=== PATIENT | female | born 1940 | race Hispanic/Latino ===

== ENCOUNTER 2019-06-16 18:12 | Inpatient (IN) | payer OTHER, MEDICARE ==
[~2019-06-16] VITALS: Ht 162.6 cm; Wt 67.7 kg
[~2019-06-16 18:12] MED LIST: AMLO-258 PO; HYDR12.54 PO; METF-446 PO
[2019-06-16 18:42] LABS: BASOPHILS % (AUTO) 0.6 % (0.0-5.0); EOSINOPHILS % (AUTO) 3.2 % (0.0-8.0); HEMATOCRIT 34.4 % (36-48); LYMPHOCYTES % (AUTO) 16.3 % (21.0-51.0); MEAN CORPUSCULAR HEMOGLOBIN 30.3 pg (27.0-33.0); MEAN CORPUSCULAR HGB CONC 34.3 g/dL (32.0-36.0); MEAN CORPUSCULAR VOLUME 88.4 fL (79-99); MONOCYTES % (AUTO) 13.8 % (3.0-13.0); NEUTROPHILS % (AUTO) 64.2 % (40.0-77.0); PLATELET COUNT (AUTO) 128 K/uL (130-400); RED BLOOD CELL COUNT(AUTO) 3.89 MIL/uL (4.00-5.50); RED CELL DISTRIBUTION WIDTH 12.8 % (11.0-15.5); WHITE BLOOD COUNT (AUTO) 6.3 K/uL (4.8-10.8)
[2019-06-16 18:51] LABS: POTASSIUM 4.8 mmol/L (3.5-5.1)
[2019-06-16 18:55] LABS: BILIRUBIN,TOTAL 0.7 mg/dL (0.2-1.0)
[2019-06-16] MEDS: SODIUM CHLORIDE 0.9% 1000ML 1,000 ML IV SCH (20:32)
[2019-06-16] MEDS ORDERED: KETOROLAC TROMETHAMINE 15MG/ML IV PRN (20:45)
[2019-06-16] MEDS ORDERED: ONDANSETRON HCL 4 MG/2 ML VIAL IV PRN (20:45)
[2019-06-16] MEDS ORDERED: LACTULOSE 20 GM/30 ML UDCUP PO PRN (20:45)
[2019-06-16] MEDS: LIDOCAINE 5% TOPICAL PATCH TP SCH (20:45)
[2019-06-16] MEDS ORDERED: HYDRALAZINE HCL 20 MG/ML VIAL IV PRN (20:45)
[2019-06-16] MEDS: INSULIN HUMULIN R 100 UNIT/ML 3ML SQ SCH (21:00)
[2019-06-16 21:22] LABS: INR 1.02 (0.85-1.15); PARTIAL THROMBOPLASTIN TIME 27.4 SEC (26.3-35.5)
[2019-06-16 21:26] LABS: CHOLESTEROL 139 mg/dL (<200); HDL CHOLESTEROL 51 mg/dL (35-85); LDL DIRECT 66 mg/dL (0-99); TRIGLYCERIDES 111 mg/dL (30-200)
[2019-06-16 21:26] LABS: HEMOGLOBIN A1C 6.3 % (4.0-6.0)
[2019-06-16] MEDS ORDERED: FAMOTIDINE/PF 20 MG/2 ML VIAL IV ONE (21:53)
[2019-06-16] MEDS ORDERED: LACTULOSE 20 GM/30 ML UDCUP ONE (22:04)
[2019-06-16 22:45] VITALS: BP 141/78
[2019-06-17 03:49] VITALS: BP 130/69
[2019-06-17 04:21] LABS: BASOPHILS % (AUTO) 0.5 % (0.0-5.0); EOSINOPHILS % (AUTO) 2.6 % (0.0-8.0); HEMATOCRIT 30.8 % (36-48); LYMPHOCYTES % (AUTO) 19.9 % (21.0-51.0); MEAN CORPUSCULAR HEMOGLOBIN 29.9 pg (27.0-33.0); MEAN CORPUSCULAR HGB CONC 33.8 g/dL (32.0-36.0); MEAN CORPUSCULAR VOLUME 88.5 fL (79-99); MONOCYTES % (AUTO) 17.5 % (3.0-13.0); NEUTROPHILS % (AUTO) 58.7 % (40.0-77.0); PLATELET COUNT (AUTO) 89 K/uL (130-400); RED BLOOD CELL COUNT(AUTO) 3.48 MIL/uL (4.00-5.50); RED CELL DISTRIBUTION WIDTH 12.9 % (11.0-15.5); WHITE BLOOD COUNT (AUTO) 3.8 K/uL (4.8-10.8)
[2019-06-17 04:37] LABS: POTASSIUM 4.1 mmol/L (3.5-5.1)
[2019-06-17] MEDS: SODIUM CHLORIDE 0.9% 1000ML 1,000 ML IV SCH ×2 (06:19→20:37)
[2019-06-17] MEDS: INSULIN HUMULIN R 100 UNIT/ML 3ML SQ SCH ×4 (06:20→21:00)
[2019-06-17] MEDS ORDERED: PROP10TA10 PO (06:49)
[2019-06-17] MEDS ORDERED: GLIM1TAB18 PO (06:49)
[2019-06-17] MEDS ORDERED: LINA5TAB PO (06:49)
[2019-06-17] MEDS ORDERED: CYCL5TAB PO (06:49)
[2019-06-17] MEDS ORDERED: SPIR25TA6 PO (06:49)
[2019-06-17] MEDS ORDERED: AMLO2.5T4 PO (06:49)
[2019-06-17] MEDS ORDERED: PANT40TA54 PO (06:49)
[2019-06-17 07:30] VITALS: BP 104/65
[2019-06-17] MEDS: LACTULOSE 20 GM/30 ML UDCUP PO SCH ×2 (09:43→20:36)
[2019-06-17] MEDS: FAMOTIDINE/PF 20 MG/2 ML VIAL IV SCH (09:43)
[2019-06-17] MEDS: LIDOCAINE 5% TOPICAL PATCH TP SCH (09:43)
[2019-06-17 11:00] VITALS: BP 117/66
[2019-06-17] MEDS: CALCITONIN 3.7 ML AEROSOL NS SCH (11:55)
--- NOTE | 2019-06-17 14:55 | NUR ---
[facility] [place]'s daughter Jasmine Rapp discussed dc plans. Pt is independent prior to admission, lives at home alone, daughter lives close by. Pt has a walker, cane, shower chair. Denies any other equipments/services. Feels safe to go back home, daughter able to assist with transportation and needs as necessary. DC plan to home once stable. CM to cont to follow up. Addendum: 06/17/19 at 1457 by PENELOPE CORLEY LVN CM Amended: Links added.
[2019-06-17 16:00] VITALS: BP 147/69
[2019-06-17 19:56] VITALS: BP 127/67
[2019-06-17 23:35] VITALS: BP 127/66
[2019-06-18] MEDS: SODIUM CHLORIDE 0.9% 1000ML 1,000 ML IV SCH ×2 (02:32→12:15)
[2019-06-18 04:01] VITALS: BP 107/52
[2019-06-18] MEDS: INSULIN HUMULIN R 100 UNIT/ML 3ML SQ SCH ×3 (06:39→16:30)
[2019-06-18 07:30] VITALS: BP 144/66
--- NOTE | 2019-06-18 07:55 | NUR ---
Ambulation PATIENT TOLERATED PROPERLY WITH NO PAIN TO THE RESTROOM AND WAS ABLE TO SHOWER. PATIENT STATES LIDOCAINE PATCH HAS IMPROVED PAIN
--- NOTE | 2019-06-18 08:50 | NUR ---
CALLED DR. ERICK BEAL RE CONSULT; RETURNED CALL REPORTED PT STATUS: PT DENIES ANY ABDOMINAL PAIN/N/V. [id number]. CT REPORT GIVEN. DR. BEAL SAID PT DOESNT NEED AN ERCP AND NEEDS A SURGEON FOR A LAP YOLI. WILL FOLLOW UP.
[2019-06-18] MEDS: FAMOTIDINE/PF 20 MG/2 ML VIAL IV SCH (09:47)
[2019-06-18] MEDS: LIDOCAINE 5% TOPICAL PATCH TP SCH (09:50)
[2019-06-18] MEDS: LACTULOSE 20 GM/30 ML UDCUP PO SCH (09:50)
[2019-06-18] MEDS: CALCITONIN 3.7 ML AEROSOL NS SCH (09:51)
[2019-06-18 11:00] VITALS: BP 137/63
[2019-06-18 16:00] VITALS: BP 147/67
[2019-06-18] MEDS ORDERED: CALC400I NASAL (18:29)
[2019-06-18] MEDS ORDERED: CYCLOBENZAPRINE HCL 10 MG TABLET PO SCH (21:00)
[2019-06-18] MEDS ORDERED: PANTOPRAZOLE SODIUM 40 MG TABLET.DR PO SCH (21:00)
[2019-06-18] MEDS ORDERED: PROPRANOLOL HCL 10 MG TAB PO SCH (21:00)
[2019-06-19] MEDS ORDERED: AMLODIPINE BESYLATE 2.5 MG TAB PO SCH (09:00)
[2019-06-19] MEDS ORDERED: LINAGLIPTIN 5 MG TABLET PO SCH (09:00)
[2019-06-19] MEDS ORDERED: SPIRONOLACTONE 25 MG TAB PO SCH (09:00)
[2019-06-19] MEDS ORDERED: GLIMEPIRIDE 2 MG TABLET PO SCH (09:00)
== END 2019-06-18 19:30 | disposition home or self-care (01) | DRG 644 ==
LOC: EDH 18:12 → EDHIP 20:32 → 4CH 22:43
PROVIDERS: ADMIT Internal Medicine; ATTEND Internal Medicine
DX: E22.2 Syndrome of inappropriate secretion of antidiuretic hormone (principal); S32.039A Unspecified fracture of third lumbar vertebra, initial encounter for closed fracture; S32.019A Unspecified fracture of first lumbar vertebra, initial encounter for closed fracture; K76.6 Portal hypertension; D69.6 Thrombocytopenia, unspecified; K74.60 Unspecified cirrhosis of liver; K57.90 Diverticulosis of intestine, part unspecified, without perforation or abscess without bleeding; E11.9 Type 2 diabetes mellitus without complications; I10 Essential (primary) hypertension; M47.815 Spondylosis without myelopathy or radiculopathy, thoracolumbar region; M77.30 Calcaneal spur, unspecified foot; Z53.20 Procedure and treatment not carried out because of patient's decision for unspecified reasons; M81.0 Age-related osteoporosis without current pathological fracture; R16.1 Splenomegaly, not elsewhere classified; W19.XXXA Unspecified fall, initial encounter; Y93.89 Activity, other specified; Y92.098 Other place in other non-institutional residence as the place of occurrence of the external cause; Y99.8 Other external cause status; Z85.42 Personal history of malignant neoplasm of other parts of uterus; Z85.3 Personal history of malignant neoplasm of breast; Z90.710 Acquired absence of both cervix and uterus; Z88.8 Allergy status to other drugs, medicaments and biological substances; Z90.10 Acquired absence of unspecified breast and nipple; Z83.3 Family history of diabetes mellitus; Z82.3 Family history of stroke; Z82.49 Family history of ischemic heart disease and other diseases of the circulatory system
CPT/HCPCS: 36415; 70450; 71045; 72148; 73590; 74176; 76705; 80048; 80053; 80061; 82140; 82270; 82550; 82948; 83036; 83690; 83880; 84484; 85025; 85610; 85730; 93005; 97039; G0378; J3490

== ENCOUNTER 2019-08-27 22:16 | Inpatient (IN) | payer OTHER, MEDICARE ==
[~2019-08-27 22:16] MED LIST changes: -AMLO-258 PO; +AMLO2.5T4 PO; +CALC400I NASAL; +CYCL5TAB PO; +GLIM1TAB18 PO; -HYDR12.54 PO; +LINA5TAB PO; -METF-446 PO; +PANT40TA54 PO; +PROP10TA10 PO; +SPIR25TA6 PO
[2019-08-27] MEDS ORDERED: ONDANSETRON HCL 4 MG/2 ML VIAL ONE (23:09)
[2019-08-27 23:32] LABS: BASOPHILS % (AUTO) 0.2 % (0.0-5.0); EOSINOPHILS % (AUTO) 0.2 % (0.0-8.0); LYMPHOCYTES % (AUTO) 11.1 % (21.0-51.0); MEAN CORPUSCULAR HEMOGLOBIN 29.9 pg (27.0-33.0); MEAN CORPUSCULAR HGB CONC 34.1 g/dL (32.0-36.0); MEAN CORPUSCULAR VOLUME 87.7 fL (79-99); NEUTROPHILS % (AUTO) 75.6 % (40.0-77.0); PLATELET COUNT (AUTO) 144 K/uL (130-400); RED BLOOD CELL COUNT(AUTO) 3.65 MIL/uL (4.00-5.50); RED CELL DISTRIBUTION WIDTH 14.3 % (11.0-15.5); WHITE BLOOD COUNT (AUTO) 12.2 K/uL (4.8-10.8)
[2019-08-27 23:41] LABS: CREATININE 0.9 mg/dL (0.5-1.5); POTASSIUM 4.7 mmol/L (3.5-5.1)
[2019-08-27 23:44] LABS: INR 1.08 (0.85-1.15); PARTIAL THROMBOPLASTIN TIME 30.4 SEC (26.3-35.5); PROTHROMBIN TIME 11.6 SEC (9.6-11.6)
[2019-08-27 23:46] LABS: ALBUMIN 2.9 g/dL (3.5-5.0); BILIRUBIN,DIRECT 0.5 mg/dL (0.0-0.3); BILIRUBIN,TOTAL 1.2 mg/dL (0.2-1.0); TOTAL PROTEIN, SERUM 6.5 g/dL (6.0-8.3)
[2019-08-28] MEDS ORDERED: SODIUM CHLORIDE 0.9% IV SCH (01:30)
[2019-08-28] MEDS ORDERED: LACTULOSE 20 GM/30 ML UDCUP PO PRN (01:30)
[2019-08-28] MEDS ORDERED: OCTREOTIDE ACETATE IV SCH (01:30)
[2019-08-28] MEDS ORDERED: ONDANSETRON HCL 4 MG/2 ML VIAL IV PRN (01:30)
[2019-08-28] MEDS ORDERED: HYDRALAZINE HCL 20 MG/ML VIAL IV PRN (02:00)
[2019-08-28] MEDS ORDERED: SODIUM CHLORIDE 0.9% 1000ML 1,000 ML IV ONE (05:04)
[2019-08-28 05:34] LABS: HEMATOCRIT 31.1 % (36-48)
[2019-08-28] MEDS ORDERED: ACETAMINOPHEN 325 MG TAB ONE (06:12)
--- NOTE | 2019-08-28 08:00 | NUR ---
PT WAS ADMITTED FROM ER AND AT PRESENT IS RECEIVING PROTONIX AND SANDOSTATIN DRIPS PRESCRIBED. PT IN NO APPARENT DISCOMFORT. WILL COMMUNICATE DR. RAUSCH AND ADVISE OF CONSULT.
--- NOTE | 2019-08-28 08:30 | NUR ---
DR. RAUSCH WAS PAGED TO NURSING [facility] AND WILL AWAIT HIS CALL BACK.
[2019-08-28 08:46] VITALS: BP 124/49
[2019-08-28] MEDS: PANTOPRAZOLE SODIUM 80 MG in SODIUM CHLORIDE 0.9% 100 ML IV SCH (09:00)
[2019-08-28] MEDS ORDERED: LACT10SO32 PO (09:56)
--- NOTE | 2019-08-28 10:18 | NUR ---
DR. RAUSCH CALLED BACK AND WILL SCHEDULE THE EGD TODAY. SCHEDULING AND GI LAB NOTIFIED. DAUGHTER LAURA WAS CALLED AND ADVISED OF EGD TO BE DONE TODAY. PT WAS ADVISED AND SIGNED CONSENT. PT AT PRESENT IS COMFORTABLE AND OFFERING N/C.
[2019-08-28 11:44] LABS: HEMATOCRIT 32.4 % (36-48)
[2019-08-28 12:03] VITALS: BP 148/73
[2019-08-28] MEDS ORDERED: PROPOFOL 10 MG/ML 20ML VIAL IV ONE (12:27)
[2019-08-28] MEDS: SODIUM CHLORIDE 0.9% 1000ML 1,000 ML IV SCH (15:20)
[2019-08-28] MEDS ORDERED: PHARMACY COMMUNICATION MISC SCH (16:15)
[2019-08-28 17:08] VITALS: BP 130/69
[2019-08-28 19:42] VITALS: BP 125/59
[2019-08-28] MEDS: INSULIN HUMULIN R 100 UNIT/ML 3ML SQ SCH (19:58)
[2019-08-28] MEDS: LACTULOSE 20 GM/30 ML UDCUP PO SCH (19:59)
--- NOTE | 2019-08-28 20:00 | NUR ---
PATIENT WAS RECEIVED IN BED, AAOX3, NO ACUTE DISTRESS NOTED. POC DISCUSSED WITH HER AND HER DAUGHTER VIA TELEPHONE. PATIENT IS POST EGD TODAY. CONTINUES WITH SANDOSTATIN DRIP PER PROTOCOL. CALL HERNANDEZ IS WITHIN REACH, WILL CONT TO MONITOR CLOSELY.
[2019-08-28 23:08] VITALS: BP 130/59
[2019-08-28] MEDS: ACETAMINOPHEN 325 MG TAB PO PRN (23:45)
--- NOTE | 2019-08-29 00:04 | NUR ---
PATIENT IS VERY UNCOMFORTABLE, STATES SHE HAS A LOT OF "AIR". PATIENT IS OUT OF BED, STANDING BY BED TO LET THE "AIR" OUT. INSTRUCTED ON SAFETY. STATES AT HOME SHE FEELS THE SAME WHEN SHE TAKES THE LACTULOSE. I INFORMED HER IT IS A SECONDARY EFFECT OF THE MEDICATION. SHE STATES SHE WANTS TO GO HOME. I RECEIVED A CALL FROM PT'S DAUGHTER AGAIN. I UPDATED HER ON STATUS. WILL CONT TO MONITOR CLOSELY. Addendum: 08/29/19 at 0008 by ROBERT LLOYD RN RN Amended: Links added.
[2019-08-29 04:02] VITALS: BP 146/70
[2019-08-29] MEDS: INSULIN HUMULIN R 100 UNIT/ML 3ML SQ SCH ×4 (06:00→23:52)
[2019-08-29 07:00] VITALS: BP 149/64
[2019-08-29] MEDS: LACTULOSE 20 GM/30 ML UDCUP PO SCH ×2 (08:08→20:35)
[2019-08-29] MEDS: PANTOPRAZOLE SODIUM 80 MG in SODIUM CHLORIDE 0.9% 100 ML IV SCH (08:14)
--- NOTE | 2019-08-29 09:15 | NUR ---
RECEIVED CALL FROM PT.'S DAUGHTER, LAURA ALBERTS, UPDATE PROVIDED AND ALL QUESTIONS ANSWERED.
[2019-08-29 10:52] LABS: BASOPHILS % (AUTO) 0.1 % (0.0-5.0); EOSINOPHILS % (AUTO) 0.8 % (0.0-8.0); HEMATOCRIT 29.5 % (36-48); LYMPHOCYTES % (AUTO) 6.7 % (21.0-51.0); MEAN CORPUSCULAR HEMOGLOBIN 29.9 pg (27.0-33.0); MEAN CORPUSCULAR HGB CONC 33.2 g/dL (32.0-36.0); MEAN CORPUSCULAR VOLUME 89.9 fL (79-99); MONOCYTES % (AUTO) 12.2 % (3.0-13.0); NEUTROPHILS % (AUTO) 79.7 % (40.0-77.0); PLATELET COUNT (AUTO) 104 K/uL (130-400); RED BLOOD CELL COUNT(AUTO) 3.28 MIL/uL (4.00-5.50); RED CELL DISTRIBUTION WIDTH 14.6 % (11.0-15.5); WHITE BLOOD COUNT (AUTO) 7.7 K/uL (4.8-10.8)
[2019-08-29 11:05] LABS: BILIRUBIN,TOTAL 0.8 mg/dL (0.2-1.0); CREATININE 0.6 mg/dL (0.5-1.5); POTASSIUM 3.5 mmol/L (3.5-5.1); TOTAL PROTEIN, SERUM 4.9 g/dL (6.0-8.3)
[2019-08-29 12:34] VITALS: BP 155/69
[2019-08-29] MEDS: SODIUM CHLORIDE 0.9% 1000ML 1,000 ML IV SCH ×2 (12:45→17:25)
[2019-08-29] MEDS: ACETAMINOPHEN 325 MG TAB PO PRN (12:53)
[2019-08-29 16:34] VITALS: BP 145/67
--- NOTE | 2019-08-29 16:45 | NUR ---
ASSISTED OOB TO CHAIR AT BEDSIDE PER PT. REQUEST. CALL LIGHT WITHIN REACH.
--- NOTE | 2019-08-29 17:30 | NUR ---
ASSISTED TO BSC AND BACK TO CHAIR AT BEDSIDE. SMALL BROWN FORMED BM NOTED; CARE RENDERED. CALL LIGHT WITHIN REACH.
[2019-08-29 20:00] VITALS: BP 149/82
[2019-08-30] VITALS (8 sets, daily range): BP systolic 122–147; BP diastolic 58–83
[2019-08-30 03:46] LABS: BASOPHILS % (AUTO) 0.2 % (0.0-5.0); EOSINOPHILS % (AUTO) 0.6 % (0.0-8.0); LYMPHOCYTES % (AUTO) 9.4 % (21.0-51.0); MEAN CORPUSCULAR HEMOGLOBIN 29.3 pg (27.0-33.0); MEAN CORPUSCULAR HGB CONC 32.9 g/dL (32.0-36.0); MEAN CORPUSCULAR VOLUME 89.2 fL (79-99); MONOCYTES % (AUTO) 10.8 % (3.0-13.0); NEUTROPHILS % (AUTO) 78.1 % (40.0-77.0); PLATELET COUNT (AUTO) 111 K/uL (130-400); RED BLOOD CELL COUNT(AUTO) 3.14 MIL/uL (4.00-5.50); RED CELL DISTRIBUTION WIDTH 14.6 % (11.0-15.5); WHITE BLOOD COUNT (AUTO) 10.1 K/uL (4.8-10.8)
[2019-08-30 04:08] LABS: BILIRUBIN,TOTAL 0.8 mg/dL (0.2-1.0); CREATININE 0.6 mg/dL (0.5-1.5); TOTAL PROTEIN, SERUM 4.7 g/dL (6.0-8.3)
[2019-08-30] MEDS: ACETAMINOPHEN 325 MG TAB PO PRN ×3 (05:06→21:58)
[2019-08-30] MEDS: INSULIN HUMULIN R 100 UNIT/ML 3ML SQ SCH ×3 (05:33→17:00)
[2019-08-30] MEDS: SODIUM CHLORIDE 0.9% 1000ML 1,000 ML IV SCH ×2 (06:14→08:45)
[2019-08-30] MEDS: LACTULOSE 20 GM/30 ML UDCUP PO SCH ×2 (08:45→20:50)
[2019-08-30] MEDS: PANTOPRAZOLE SODIUM 80 MG in SODIUM CHLORIDE 0.9% 100 ML IV SCH (08:45)
--- NOTE | 2019-08-30 09:21 | NUR ---
cm note met with patient and states resides at home alone, but has been staying with daughter, has been staying with her recently due to weakness. and plans to return back with her [place]. pt uses walker for ambulation, pending provider approval. daughter assist with adls/ transportation. dc plan is back home with daughter. Addendum: 08/30/19 at 0928 by CRISTINA LEWIS CM Amended: Links added.
--- NOTE | 2019-08-30 20:30 | NUR ---
STATUS WHILE UP TO CHAIR HR UP TO 130 ST. ASSISTED TO BED. C/O FEELING SOB. PULSE OXIMETER 94 ON RA. ENCOURAGED TO RELAX . CALL LIGHT WITHIN REACH.
[2019-08-30] MEDS: PROPRANOLOL HCL 10 MG TAB PO SCH (20:50)
[2019-08-30] MEDS ORDERED: PANTOPRAZOLE SODIUM 40 MG TABLET.DR PO SCH ×2 (21:00)
[2019-08-30] MEDS ORDERED: CYCLOBENZAPRINE HCL 10 MG TABLET PO SCH (21:00)
--- NOTE | 2019-08-30 21:15 | NUR ---
STATUS WHILE IN BED C/O SOB PLACED ON 2LNC AND HOB RAISED. NO CHANGE IN ASSESSMENT. ABGS ORDERED.
[2019-08-30 21:20] LABS: ABG BASE EXCESS -7.8 mmol/L (-2.0-3.0); ABG HCO3 14.4 mmol/L (21.0-28.0); ABG OXYGEN SATURATION 96.7 % (95.0-99.0); ABG PCO2 23 mmHg (32-45)
--- NOTE | 2019-08-30 21:20 | NUR ---
STATUS ABG RESULT WNL. LESS SOB AT THIS TIME. MEDICATED FOR PAIN EARLIER . CALL LIGHT WITHIN REACH.
--- NOTE | 2019-08-30 21:30 | NUR ---
APARTMENT RENTAL AGENT CALL CALL PLACED TO AJ TO INFORM OF ABG RESULT AND EARLIER SOB.
[2019-08-30] MEDS ORDERED: SPIRONOLACTONE 25 MG TAB ONE (21:54)
--- NOTE | 2019-08-30 22:00 | NUR ---
FAMILY CALL RECEIVED A CALL FROM HER DAUGHTER. STATES SHE RECEIVED A CALL FROM HER MOTHER EARLIER AND C/O SOB. INFORMED HER OF EARLIER SOB AND LAB RESULTS. ALSO INFORMED OF MEDICATED FOR PAIN EARLIER AND RESTING AT THIS TIME. ASKED IF SHE HAD RECEIVED HER ALDACTONE TODAY. WILL CHECK THE MAR AND GIVE IF NOT GIVEN ALREADY.
[2019-08-31] MEDS ORDERED: LIDOCAINE 5% TOPICAL PATCH TP SCH (00:45)
--- NOTE | 2019-08-31 00:51 | NUR ---
TIME PIECE REPAIRER CALL AWAKE. C/O BACK PAIN AND FEELING SOB. SATS 985 ON PRESENT O2. CALL PLACED TO AJ AND INFORMED OF THIS AND GIVEN PREVIOUS ABG RESULTS. ORDERS RECEIVED AND CARRIED OUT.
[2019-08-31] MEDS ORDERED: LIDOCAINE 5% TOPICAL PATCH TP ONE (01:01)
[2019-08-31 03:32] VITALS: BP 134/64
[2019-08-31] MEDS: ACETAMINOPHEN 325 MG TAB PO PRN (04:22)
[2019-08-31] MEDS: INSULIN HUMULIN R 100 UNIT/ML 3ML SQ SCH ×3 (05:40→11:06)
[2019-08-31] MEDS: PROPRANOLOL HCL 10 MG TAB PO SCH (07:35)
[2019-08-31] MEDS: LACTULOSE 20 GM/30 ML UDCUP PO SCH (07:36)
[2019-08-31 07:50] VITALS: BP 119/66
[2019-08-31] MEDS ORDERED: AMLODIPINE BESYLATE 2.5 MG TAB PO SCH (09:00)
[2019-08-31] MEDS ORDERED: SPIRONOLACTONE 25 MG TAB PO SCH (09:00)
[2019-08-31] MEDS ORDERED: GLIMEPIRIDE 2 MG TABLET PO SCH (09:00)
[2019-08-31] MEDS ORDERED: LINAGLIPTIN 5 MG TABLET PO SCH (09:00)
[2019-08-31 10:42] LABS: BASOPHILS % (AUTO) 0.2 % (0.0-5.0); EOSINOPHILS % (AUTO) 0.1 % (0.0-8.0); LYMPHOCYTES % (AUTO) 6.6 % (21.0-51.0); MEAN CORPUSCULAR HEMOGLOBIN 30.1 pg (27.0-33.0); MEAN CORPUSCULAR HGB CONC 33.3 g/dL (32.0-36.0); MEAN CORPUSCULAR VOLUME 90.2 fL (79-99); MONOCYTES % (AUTO) 6.6 % (3.0-13.0); NEUTROPHILS % (AUTO) 85.7 % (40.0-77.0); PLATELET COUNT (AUTO) 200 K/uL (130-400); RED BLOOD CELL COUNT(AUTO) 3.99 MIL/uL (4.00-5.50); RED CELL DISTRIBUTION WIDTH 14.7 % (11.0-15.5); WHITE BLOOD COUNT (AUTO) 10.2 K/uL (4.8-10.8)
[2019-08-31 10:58] LABS: ALBUMIN 2.5 g/dL (3.5-5.0); BILIRUBIN,TOTAL 1.2 mg/dL (0.2-1.0); CREATININE 1.2 mg/dL (0.5-1.5); TOTAL PROTEIN, SERUM 6.3 g/dL (6.0-8.3)
[2019-08-31 12:00] VITALS: BP 125/63
== END 2019-08-31 19:15 | disposition home or self-care (01) | DRG 432 ==
LOC: EDH 22:16 → OBSVTOIN 08-28 01:50 → EDHIP 08-28 01:50 → DAHIP 08-28 04:33
PROVIDERS: ADMIT Hospitalist; ATTEND Hospitalist
PROC: 06L38CZ Occlusion of Esophageal Vein with Extraluminal Device, Via Natural or Artificial Opening Endoscopic (ICD-10-PCS; principal; 2019-08-28)
DX: K74.60 Unspecified cirrhosis of liver (principal); I85.11 Secondary esophageal varices with bleeding; E87.1 Hypo-osmolality and hyponatremia; C16.2 Malignant neoplasm of body of stomach; D62 Acute posthemorrhagic anemia; E11.9 Type 2 diabetes mellitus without complications; I10 Essential (primary) hypertension; I48.0 Paroxysmal atrial fibrillation; D69.6 Thrombocytopenia, unspecified; Z85.42 Personal history of malignant neoplasm of other parts of uterus; Z85.3 Personal history of malignant neoplasm of breast; Z90.710 Acquired absence of both cervix and uterus; Z90.10 Acquired absence of unspecified breast and nipple; Z88.8 Allergy status to other drugs, medicaments and biological substances; Z82.3 Family history of stroke; Z82.49 Family history of ischemic heart disease and other diseases of the circulatory system
CPT/HCPCS: 36415; 36600; 43244; 71045; 80048; 80053; 80076; 82270; 82550; 82803; 82948; 83690; 84484; 85014; 85018; 85025; 85610; 85730; 86850; 86900; 86901; 86922; 93005; C1894; C9113; G0378; J1815; J2354; J2405; J2704; J7030; J7050